=== PATIENT | female | born 1960 | race Caucasian/White ===

== ENCOUNTER 2016-10-09 10:55 | Emergency (ER) | payer BC | END 2016-10-09 13:19 | disposition home or self-care (01) | LOC: D.ER 10:55 | DX: M62.838 Other muscle spasm (principal); M54.12 Radiculopathy, cervical region; M54.16 Radiculopathy, lumbar region; F31.89 Other bipolar disorder; F17.200 Nicotine dependence, unspecified, uncomplicated ==